=== PATIENT | male | born 1995 | race Caucasian/White ===

== ENCOUNTER 2018-10-28 10:28 | Emergency (ER) | payer BC, SELFPAY ==
[2018-10-28] MEDS ORDERED: Adacel (T-DAP) 0.5 ML SYRINGE ONE (10:42)
[2018-10-28] MEDS ORDERED: Lidocaine 1% w/Epinephrine 1:100K 30 ML VIAL ONE (10:45)
== END 2018-10-28 11:10 | disposition home or self-care (01) ==
LOC: NAV ERS 10:28
DX: S61.412A Laceration without foreign body of left hand, initial encounter (principal); I10 Essential (primary) hypertension; Z23 Encounter for immunization; W55.22XA Struck by cow, initial encounter
CPT/HCPCS: 12002; 90471; 90715; J2001